=== PATIENT | male | born 1960 | race Caucasian/White ===

== ENCOUNTER 2018-01-12 12:12 | Outpatient (CLI) | payer OTHER, SELFPAY ==
[2018-01-12 12:43] LABS: Abs Immature Grans 0.01 k/cumm (0.0-0.09); Absolute Basophil Count 0.04 k/cumm (0.0-0.2); Absolute Lymphocyte Count 1.44 k/cumm (1.2-3.4); Absolute Monocyte Count 0.49 k/cumm (0.11-0.7); Absolute Neutrophil Count 5.46 k/cumm (1.2-6.7); Basophils % 0.5; Eosinophils % 1.3; HCT 45.1 % (40.0-50.0); HGB 15.2 g/dL (13.5-17.5); Immature Grans % 0.1; Lymphocytes % 19.1; Mean Corp. HGB Concentration 33.7 g/dL (32.0-36.0); Mean Corpuscular Hemoglobin 30.5 pg (27.0-33.0); Mean Corpuscular Volume 90.6 fL (80-95); Mean Platelet Volume 9.3 fL (8.0-11.0); Monocytes % 6.5; Neutrophils % 72.5; Platelet Count 212 x1000/uL (130-400); RBC 4.98 m/cumm (4.50-6.00); RBC Distribution Width 13.1 % (11.8-14.1); White Blood Cell Count 7.54 k/cumm (4.4-10.8)
[2018-01-12 14:03] LABS: CREATININE 0.84 mg/dL (0.70-1.30)
[2018-01-15 09:55] LABS: PSA, Screening 2.4 ng/ml (0-3.5)
== END 2018-01-12 12:32 ==
PROVIDERS: PCP Internal Medicine; Visit Provider Surgery
DX: N40.0 Benign prostatic hyperplasia without lower urinary tract symptoms (principal); R63.4 Abnormal weight loss; Z12.5 Encounter for screening for malignant neoplasm of prostate
CPT/HCPCS: 36415; 84153; 82565; 84443; 85025

== ENCOUNTER 2018-01-15 00:43 | Outpatient (CLI) | payer OTHER, SELFPAY ==
--- NOTE | 2018-01-15 07:07 | DI.CT_ITS ---
SYMPTOM/DIAGNOSIS: RECTAL MASS VS LARGE PROSTATE K62.[address]: 01/15 CT examination of the abdomen and pelvis was performed with oral and IV contrast administration with biphasic hepatic imaging. Images obtained through the lung bases are unremarkable. Liver, spleen, pancreas, gallbladder and bile ducts are unremarkable in appearance. Abdominal aorta is of normal diameter. No major vascular abnormalities seen. No significant abdominal wall hernia seen. No abdominal or pelvic adenopathy. Adrenals appear unremarkable bilaterally. Kidneys appear normal with an incidental apparent right renal cortical cyst. Abdominal aorta is of normal diameter and no major vascular abnormality seen. No significant abdominal wall hernia. Appendix appears normal. No evidence of bowel obstruction or diverticulitis. No abdominal or pelvic adenopathy. Requisition raises the possibility of ectal mass vs enlarged prostate. The prostate is in fact enlarged measuring roughly 5 x 6 x 6 cm in diameter and protruding in to the urinary bladder floor. No gross rectal mass or rectal wall invasion identified by CT criteria. No evidence of obstruction. CONCLUSION: No evidence of acute intra-abdominal process. Markedly enlarged prostate, no gross rectal mass by CT criteria.
[2018-01-15] MEDS: Breeza Beverage 473 ML BTL PO ×2 (07:32→07:33)
[2018-01-15] MEDS: Omnipaque 350 MG/ML 50 ML BTL PO (07:33)
[2018-01-15] MEDS: Omnipaque 350 MG/ML 100 ML BTL IV (09:05)
== END 2018-01-15 01:03 ==
PROVIDERS: PCP Internal Medicine; Visit Provider Surgery
DX: K62.89 Other specified diseases of anus and rectum (principal); N40.0 Benign prostatic hyperplasia without lower urinary tract symptoms
CPT/HCPCS: 74177; J3490; Q9967

== ENCOUNTER 2018-01-26 00:10 | Outpatient (CLI) | payer OTHER, SELFPAY ==
--- NOTE | 2018-01-26 11:20 | PROST_PTH ---
PATIENT: Yovani Louis LOC: [facility] U#:[id number] AGE/SX: 57/M ROOM: RE01/26/[address]: Luis Fernando Natarajan MD : [id number] BED: DIS: 01/26/2018 SPEC #: [id number] RECD: 01/26/18 12:49 STATUS: SONIA RE #: [id number] JOYCE: 01/26/18 11:[address]: Luis Fernando Natarajan DEPT: Surgical Specimen RECD BY: Jessica Anthony ENTERED: 01/26/18 12:54 SP TYPE: PROST OTHR DR: Sekou Horne Tissues: 1 - PROSTATE NEEDLE BIOPSY 2 - PROSTATE NEEDLE BIOPSY 3 - PROSTATE NEEDLE BIOPSY 4 - PROSTATE NEEDLE BIOPSY 5 - PROSTATE NEEDLE BIOPSY 6 - PROSTATE NEEDLE BIOPSY 7 - PROSTATE NEEDLE BIOPSY 8 - PROSTATE NEEDLE BIOPSY 9 - PROSTATE NEEDLE BIOPSY 10 - PROSTATE NEEDLE BIOPSY 11 - PROSTATE NEEDLE BIOPSY 12 - PROSTATE NEEDLE BIOPSY Procedures: GROSS AND MICRO LEVEL 4 Comments: [id number]
--- NOTE | 2018-01-26 11:24 | DI.US_ITS ---
SYMPTOM/DIAGNOSIS: ENLARGED PROSTATE, UTI SYMPTOMS, NODULAR, N40.3, M40.1 ULTRASOUND GUIDED PROSTATE BIOPSY: Ultrasound guidance was provided for prostate biopsy performed by Dr. Natarajan. Please see Dr. Natarajan's procedure note.
--- NOTE | 2018-01-26 11:26 | W.PROCNOTE ---
Procedure Note Date of procedure: 01/26/18 Procedure: Ultrasound guided biopsy of the prostate Surgeon/Proceduralist/Physician: Luis Fernando Natarajan Procedure Diagnosis: Abnormal digital rectal exam Procedure Indications: This is a 57-year-old gentleman who was identified as having a firm area on the prostate. His PSA was relatively low at 2.1 ng/mL. He presents for ultrasound-guided biopsy Procedure Description: The patient was brought to the radiology suite on 01/26/2018. He was placed in the left lateral position. Prior to the exam, he was given a mechanical and antibiotic bowel prep. Transrectal imaging the prostate was performed. The prostatic volume was calculated at 46 cc per there was a large amount of stone at the junction of the transition and peripheral zone especially in the mid gland. These stones extended across the midline to involve both the right and left sides. No specific hypoechoic areas were seen in the peripheral zone. The periprosthetic nerve block was then performed using 1% Xylocaine. Atotal of 12 laterally directed biopsies were taken and sent to pathology for permanent section. He tolerated this procedure well. He will return in 1-2 weeks to review the biopsy results. He is cautioned about the possibility of urosepsis, blood in the urine, blood in the semen and blood from the rectum
== END 2018-01-26 00:30 ==
PROVIDERS: PCP Internal Medicine; Visit Provider Urology
DX: N40.3 Nodular prostate with lower urinary tract symptoms (principal); N41.1 Chronic prostatitis; N42.89 Other specified disorders of prostate
CPT/HCPCS: 55700; 76872; 76942; 88305

== ENCOUNTER 2019-02-04 08:54 | Outpatient (CLI) | payer OTHER, SELFPAY ==
[2019-02-05 09:59] LABS: PSA, Diagnostic 2.7 ng/mL (0.0-3.5)
== END 2019-02-04 09:14 ==
PROVIDERS: PCP Internal Medicine; Visit Provider Urology
DX: N42.9 Disorder of prostate, unspecified (principal)
CPT/HCPCS: 36415; 84153

== ENCOUNTER 2020-02-10 02:09 | Outpatient (CLI) | payer OTHER, SELFPAY ==
[2020-02-10 22:01] LABS: PSA, Diagnostic 2.3 ng/mL (0.0-3.5)
== END 2020-02-10 02:29 ==
PROVIDERS: PCP Internal Medicine; Visit Provider Urology
DX: N42.89 Other specified disorders of prostate (principal)
CPT/HCPCS: 36415; 84153

== ENCOUNTER 2021-02-04 02:46 | Outpatient (CLI) | payer SELFPAY | END 2021-02-04 02:47 | disposition home or self-care (01) | PROVIDERS: PCP Internal Medicine; Visit Provider Urology | DX: R39.89 Other symptoms and signs involving the genitourinary system (principal) | CPT/HCPCS: 36415; 84153 ==

== ENCOUNTER 2022-03-25 16:39 | Outpatient (REF) | payer BC, SELFPAY ==
[2022-03-28 09:56] LABS: PSA, Diagnostic 2.7 ng/mL (<=4.5)
== END 2022-03-25 16:40 | disposition home or self-care (01) ==
LOC: LBN 16:39
PROVIDERS: PCP Internal Medicine; Visit Provider Urology
DX: R39.89 Other symptoms and signs involving the genitourinary system (principal)
CPT/HCPCS: 84153

== ENCOUNTER 2023-03-24 01:58 | Outpatient (CLI) | payer BC, SELFPAY ==
[2023-03-24 17:55] LABS: PSA, Diagnostic 3.4 ng/mL (<=4.5)
== END 2023-03-24 01:59 | disposition home or self-care (01) ==
LOC: LBO 01:58
PROVIDERS: PCP Internal Medicine; Visit Provider Urology
DX: R39.89 Other symptoms and signs involving the genitourinary system (principal)
CPT/HCPCS: 36415; 84153

== ENCOUNTER 2024-04-05 01:12 | Outpatient (CLI) | payer BC, SELFPAY ==
[2024-04-05 18:34] LABS: PSA, Diagnostic 2.7 ng/mL (<=4.5)
== END 2024-04-05 01:13 | disposition home or self-care (01) ==
LOC: LBO 01:12
PROVIDERS: Visit Provider Urology
DX: R39.89 Other symptoms and signs involving the genitourinary system (principal)
CPT/HCPCS: 36415; 84153